=== PATIENT | female | born 2000 | race Caucasian/White ===

== ENCOUNTER → 2020-05-04 06:58 | Outpatient (CLI) | payer BC, SELFPAY ==
[2020-05-04 19:08] LABS: SARS-CoV-2 RNA PCR Negative
== END ==
PROVIDERS: PCP Nurse Practitioner Adult Health; Visit Provider Nurse Practitioner Adult Health
DX: Z20.822 Contact with and (suspected) exposure to COVID-19 (principal); R09.81 Nasal congestion
CPT/HCPCS: C9803; U0003; U0005

== ENCOUNTER 2024-11-12 10:16 | Emergency (ER) | payer OTHER, SELFPAY ==
--- OUTSIDE RECORDS SUMMARY | 2010-03-11 19:00 | XMS_ITS | Continuity of Care Document ---
Author Organization [facility] Address [address] [place] [address] Phone Care Team Providers Care Appeals Nurse Name Role Phone Conversion MD, Doctor Unavailable Unavailabl e Medications Medication Instructions Dosage Effective Dates (start - stop) Status Comments EPIPEN 0.3MG/0.3 ML 1 DIRECTE - Act bello Please fill with the [place] Advance Directives Directive Yes / No Effective Date File Name No Information Encounters Encounter Description Practice Location Reason(s) For Visit Diagnoses Date Provider Providers [facility] [address], [place], [place], [id number], tel:[phone] Conversion Department No Information 1 Conversion Doctor. [address] [place] [address], [address], . [facility], [address], [place], [place], [id number], tel:[phone] [facility] [address]. [address] [place] [address], [id number], . tel:[phone] Family History Family Member Type Diagnosis Age At Onset No Information Payers Payer name Insurance type Covered libertarian ID Authoriza tion(s) No Information Social History Type Description Quantity Date Captured Comments Sex Female Smoking Status No Information Chief Complaint And Reason For Visit No Information Reason For Referral Reason For Referral No Information History Of Present Illness Encounter Date Complaint History Of Prese nt Illness No Information Functional Status Date Functional Assessmen t No Information Instructions Date Instruction Additional Infor mation No Information Assessments Type Assessment Date No Information Patient Care Teams Name Effective Dates (start - stop) Status Members No Information
--- OUTSIDE RECORDS SUMMARY | 2024-10-09 02:40 | XMS_ITS ---
Author Organization [facility] ([address]) Address [address] [place] [address] Care Team Providers Care Superintendent Transmission Name Role Phone Bk Delgado Primary Care Provider Divya Naidu Unavailable [phone] Dimitris Edgar Unavailable [phone] REASON FOR VISIT SCIT - Traditional Schedule Allergy Immunotherapy Social History Sex Assigned At : Social History Observation Description Sex Assigned At Female Encounters Encounter Location Date Provider Diagnosis [facility] [address] [place] [address] 10/09/2024 Dimitris Edgar Allergic rhinitis du e to pollen J30.1 ; Other allergic rhinitis J30.89 ; Allergic rhinitis due to animal (cat) (dog) hair and dander J30.81 and Other chronic allergic conjunctivitis H10.45 Assessments Encounter Date Diagnosis (ICD Code) Assessment Notes Treatment Notes Treatment Clinical Notes Section Notes 10/09/2024 Allergic rhinitis due to pollen (ICD-10 - J30.1) 10/09/2024 Other allergic rhinitis (ICD-10 - J30.89) 10/09/2024 Allergic rhinitis due to animal (cat) (dog) hair and dander (ICD-10 - J30.81) 10/09/2024 Other chronic allergic conjunctivitis (ICD-10 - H10.45) Plan Of Treatment Next Appt Details Follow Up: 1 Week, Reason: Provider Name:Alicia alex 12/02/2024 07:30:00 AM[facility], [address], [place], [address], Progress Notes * Sera GUZMAN MDOB:[birth year] (24 yo F)Acc No.[id number]:10/09/2024 SCIT-Aeroallergen Patient: Sera MAYEN Provider: Danielle Edgar MD :2000 A ge:24 Y S ex:Female Date:10/09/2024 Address:[address] [place], [place] [id number] Pcp:Bk Delgado Subjective: * Chief Complaints: * 1 . SCIT - Traditional Schedule Allergy Immunotherapy. * HPI: * Introduction: The patient is here for scheduled immunotherapy. Please see the attached specialty form regarding the specifics of the administration of these vaccines. As per our protocol, they must undergo a screening health questionnaire (medication changes, reaction(s) to last immunotherapy dose(s), current health status, ACT (if appropriate), self-injectable epinephrine on patient(?) and peak flow (if appropriate)). Also, the patient must wait in our office for 30 minutes after receiving the vaccine(s). Furthermore, every patient must have an epinephrine pen (self-injectable) with them at the time of administration--and carry if for the following 1.5 hours after they leave our office. The patient must also have taken their antihistamine the day of the injection, preferably 2 hours prior. The consent form for SCIT (subcutaneous immunotherapy) is on file. * Medical History: Objective: * Vitals: Assessment: * Assessment: 1. A llergic rhinitis due to pollen - J30.1 (Primary) 2 . O ther allergic rhinitis - J30.89 3 . A llergic rhinitis due to animal (cat) (dog) hair and dander - J30.81 4 . O ther chronic allergic conjunctivitis - H10.45 Plan: * Treatment: * Follow Up: 1 Week * Billing Information: * Visit Code: * Procedure Codes: 90341 IMMUNOTHERAPY INJECTIONS. * Electronic signature of Patisai Edgar MD, FAAAAI on 11/12/2024 at 11:06 AM CDT Sign off status: Pending * Provider: Danielle Edgar MD Date: 0 10/09/2024 Generated for Ryan jurado/Job/Bella on: 0 11/12/2024 11:06 AM CDT History and Physical Notes * HPI (History of Present Illness) Category Sub-Category Detail Notes Category Not es *Introduction The patient is here for scheduled immunotherapy. Please see the attached specialty form regarding the specifics of the administration of these vaccines. As per our protocol, they must undergo a screening health questionnaire (medication changes, reaction(s) to last immunotherapy dose(s), current health status, ACT (if appropriate), self-injectable epinephrine on patient(?) and peak flow (if appropriate)). Also, the patient must wait in our office for 30 minutes after receiving the vaccine(s). Furthermore, every patient must have an epinephrine pen (self-injectable) with them at the time of administration--and carry if for the following 1.5 hours after they leave our office. The patient must also have taken their antihistamine the day of the injection, preferably 2 hours prior. The consent form for SCIT (subcutaneous immunotherapy) is on file.
--- OUTSIDE RECORDS SUMMARY | 2024-11-05 05:00 | XMS_ITS ---
Author Organization [facility] [place] ([address]) Address [address] [place] [address] Care Team Providers Care Psychometric Examiner Name Role Phone Bk Delgado Primary Care Provider Divya Naidu Unavailable [phone] Dimitris Edgar Unavailable [phone] REASON FOR VISIT SCIT - Traditional Schedule Allergy Immunotherapy Social History Sex Assigned At : Social History Observation Description Sex Assigned At Female Encounters Encounter Location Date Provider Diagnosis [facility] [address] [place] [address] 11/05/2024 Dimitris Edgar Allergic rhinitis du e to pollen J30.1 ; Other allergic rhinitis J30.89 ; Allergic rhinitis due to animal (cat) (dog) hair and dander J30.81 and Other chronic allergic conjunctivitis H10.45 Assessments Encounter Date Diagnosis (ICD Code) Assessment Notes Treatment Notes Treatment Clinical Notes Section Notes 11/05/2024 Allergic rhinitis due to pollen (ICD-10 - J30.1) 11/05/2024 Other allergic rhinitis (ICD-10 - J30.89) 11/05/2024 Allergic rhinitis due to animal (cat) (dog) hair and dander (ICD-10 - J30.81) 11/05/2024 Other chronic allergic conjunctivitis (ICD-10 - H10.45) Plan Of Treatment Next Appt Details Follow Up: 1 Week, Reason: Provider Name:Alicia alex 12/02/2024 07:30:00 AM[facility] [address], [place], [address], Progress Notes * Sera GUZMAN MDOB:[birth year] (24 yo F)Acc No.[id number]:11/05/2024 SCIT-Aeroallergen Patient: Sera MAYEN Provider: Danielle Edgar MD :2000 A ge:24 Y S ex:Female Date:11/05/2024 Address:[address] [place], [place] [id number] Pcp:Bk Delgado Subjective: * Chief Complaints: * [...] Information: * Visit Code: * Procedure Codes: 03368 IMMUNOTHERAPY INJECTIONS. * Electronic signature of Patisai Edgar MD, FAAAAI on 11/12/2024 at 11:06 AM CDT Sign off status: Pending * Provider: Danielle Edgar MD Date: 0 11/05/2024 Generated for Ryan jurado/Job/Bella on: 0 11/12/2024 [...]
--- NOTE | ~2024-11-12 | CT_ITS ---
EXAMINATION: CT abdomen pelvis w con DATE: 11/12/2024 15:47 INDICATION: Right upper and lower quadrant pain TECHNIQUE: Computed tomography (CT) of the abdomen and pelvis was performed with 100 cc Omnipaque 350 intravenous contrast. The dose-length product was 182.00 mGy-cm. Automated exposure control and iterative reconstruction technique were employed. COMPARISON: No prior studies for comparison. FINDINGS: Heart size normal. Small hiatal hernia. No significant pleural or pericardial effusion. Fatty infiltration of the liver. The spleen, pancreas, adrenal glands and kidneys are unremarkable. Gallbladder is present. There are thickened proximal small bowel loops with a few loops of small bowel containing air-fluid levels. Findings suspicious for enteritis. Evidence for free air or free fluid. No significant vascular abnormality. No acute osseous abnormality. IMPRESSION: 1. Thickening of proximal small bowel loops with multiple loops of small bowel containing air-fluid levels. Findings suspicious for enteritis. Reviewed, dictated and finalized at location O.
--- NOTE | ~2024-11-12 | US_ITS ---
EXAMINATION: US abdomen limited DATE: 11/12/2024 15:25 INDICATION: Right upper quadrant abdominal pain. TECHNIQUE: Multiple grayscale and Doppler ultrasound images of the abdomen were obtained. COMPARISON: None FINDINGS: The pancreatic head and body are normal in appearance. The pancreatic tail is not visualized. Liver has normal echogenicity and contour, with a smooth surface. No liver lesion identified. No intrahepatic biliary duct dilation suspected. Portal venous flow was seen in the hepatopetal, normal direction and has normal Doppler waveform. Visualized cephalad to mid aorta appears normal in caliber. The visualized proximal inferior vena cava is normal. 3-4 mm echogenic non shadowing likely polyp along the nondependent wall of the neck of the gallbladder. The gallbladder is otherwise normal in appearance. There is no shadowing cholelithiasis. The common bile duct measures 3 mm, which is normal. Sonographic Croft sign was reported as negative by the banquet food server. IMPRESSION: 1. Likely benign 3-4 mm gallbladder polyp at the neck of the gallbladder. Otherwise normal right upper quadrant ultrasound. Reviewed, dictated and finalized at location A. IMPRESSION: 1. Likely benign 3-4 mm gallbladder polyp at the neck of the gallbladder. Other kee normal right upper quadrant ultrasound.
[2024-11-12 10:38] VITALS: BP 138/97; PULSE 100; RESP 18; TEMP 36.6; O2SAT 100
[2024-11-12 10:58] LABS: Hematocrit 42.0 % (37.0-47.0); Hemoglobin 14.3 g/dL (12.0-15.0); Immature Granulocyte Percent A 0.2 % (0-0.5); Lymphocytes Absolute Auto 1.28 K/mm3 (0.9-3.2); Mean Corpuscular HGB Conc 34.0 g/dl (32-36); Mean Corpuscular Hemoglobin 31.0 pg (26-34); Mean Corpuscular Volume 91.1 fl (80-100); Nucleated Red Blood Cells Absolute Auto 0.000 K/mm3 (0.0-0.012); Nucleated Red Blood Cells Perc 0.0 % (0.0-0.2); Platelet Count Result 252 k/mm3 (150-375); Red Blood Count 4.61 M/mm3 (4.2-5.4); White Blood Count 4.2 K/mm3 (4.5-10.0)
[2024-11-12 11:01] LABS: Add Urine Microscopic? YES; Appearance Urine Clear (Clear); Glucose Urine UA Negative (Negative); Leukocyte Esterase Ur Trace LEU/UL (Negative); Nitrate Urine Negative (Negative); Non Pathogenic Casts 0-2; Specific Grav Ur 1.016 (1.001-1.035)
[2024-11-12 11:03] LABS: BEDSIDEPREGUCG Negative (Negative)
--- OUTSIDE RECORDS SUMMARY | 2024-11-12 11:06 | XMS_ITS | Patient Health Record ---
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 Name Role Phone Bk Delgado Primary Care Provider UnavailDivya Dang Unavailable [phone] Dimitris Edgar Unavailable [phone] Alicia White Unavailable [phone] Allergies No Known Allergies Reason For Referral No Information Medications Medication SIG (Take, Route, Frequency, Duration) Notes Start Date End Date Status FAMOTIDINE 40 mg 1 tab(s) orally 30 minutes before shots Active Triamcinolone Acetonide 0.1 % 1 laureano applied topically weekly as needed; Duration: 30 day(s) 08/18/2021 Active XYZAL 5 mg 1 tablet PO daily; Duration: 30 Active Singulair 10 MG 1 tab(s) orally once a day; Duration: 90 day(s) Active FLONASE 50 mcg/inh 2 spray(s) in each nostril once a day; Duration: 30 day(s) Active Isibloom 0.15 MG-0.03 MG TAKE 1 TABLET BY MOUTH EVERY DAY; Duration: 84 *Please review and pick correct strength-formula tion from Medispan options. If intended option is not shown, discontinue and re-order from Quick Search* Active SIT (TRADITIONAL) variable per schedule per schedule Active ZyrTEC Allergy 10 MG 1 tab(s) orally Qday Active Flonase Allergy Relief 50 MCG/ACT 2 spray(s) in each nostril once a day; Duration: 30 day(s) Active NASAL WASHES N/A as directed intranasally as needed; Duration: 30 Active Famotidine 40 MG 1 tab(s) orally 30 minutes before shots Active AEROCHAMBER MDI SPACER - MOUTHPIECE (ADULT) N/A as directed PO Per asthma action plan; Duration: 30 day(s) Active Auvi-Q 0.3 MG/0.3ML 0.3 mg intramuscularly once; Duration: 30 day(s) Active VENTOLIN HFA 90 mcg/inh 2 puff(s) inhaled Q4-6 hours, PRN and per the asthma action plan; Duration: 30 days Active Omeprazole 20 MG 1 capsule 30 minutes before morning meal Orally Once a day Active Pataday 0.7 % 1 drop into affected eye Ophthalmic Once a day; Duration: 30 days 05/12/2024 Active Ventolin HFA 108 (90 Base) MCG/ACT 2 puff(s) inhaled Q4-6 hours, PRN and per the asthma action plan; Duration: 30 days Active Auvi-Q 0.3 MG/0.3ML as directed Injection as directed; Duration: 30 days 05/12/2024 Active Montelukast Sodium 10 MG 1 tablet Orally Once a day; Duration: 90 days Active AUVI -Q 0.3 mg 0.3 mg intramuscularly once; Duration: 30 day(s) Not-Taking Azelastine HCl 137 MCG/SPRAY 2 sprays in each nostril Nasally Twice a day; Duration: 30 days Active Triamcinolone Acetonide 0.1 % 1 laureano applied topically weekly as needed; Duration: 30 day(s) 08/18/2021 Not-Taking Immunizations Vaccine Route Administration Date Status Comme nts Covid 19 (Pfizer) Unknown 05/03/2020 Administered Covid 19 (Pfizer) Unknown 05/06/2020 Administered Covid 19 (Pfizer) Unknown 05/29/2020 Administered Covid 19 (Pfizer) Unknown 06/02/2020 Administered Social History Tobacco Use: Social History Observation Description Date Details (start date - stop date) Never Smoker NA - NA Sex Assigned At : Social History Observation Description Sex Assigned At Female Smoking Smart Form: Question Answer Notes Are you a: never smoker Problems Problem Type SNOMED Code ICD Code Onset Dates Problem Status W/U Status Risk Notes Problem Chronic allergic conjunctivitis (46458895) Other chronic allergic conjunctivitis (H10.45) Active confirmed Problem Allergic rhinitis caused by pollen (disorder) (55670682) Allergic rhinitis due to pollen (J30.1) Active confirmed Problem Allergic rhinitis (81159506) Other allergic rhinitis (J30.89) Active confirmed Problem Anaphylaxis caused by tree nut (700478604) Anaphylactic reaction due to tree nuts and seeds, subsequent encounter (T78.05XD) Active confirmed Problem Angioneurotic edema (03140216) Angioneurotic edema, subsequent encounter (T78.3XXD) Active confirmed Problem Food allergy (522355433) Allergy to other foods (Z91.018) Active confirmed Problem Allergic rhinitis caused by animal hair and dander (883042514105113) Allergic rhinitis due to animal (cat) (dog) hair and dander (J30.81) Active confirmed Problem Ingestion dermatitis caused by food (771171396) Dermatitis due to ingested food (L27.2) Active confirmed Problem Shortness of breath (189312093) Shortness of breath (R06.02) Active confirmed Vital Signs Oximetry 100 % 05/12/2024 Blood pressure diastolic 79 mm Hg 05/12/2024 Blood pressure systolic 116 mm Hg 05/12/2024 Weight 121.6 lbs 05/12/2024 Encounters Encounter Location Date Provider Diagnosis [facility] [address] [facility] [address] [phone] 10/29/2024 Dimitris Edgar Allergic rhinitis du e to pollen J30.1 ; Other allergic rhinitis J30.89 ; Allergic rhinitis due to animal (cat) (dog) hair and dander J30.81 and Other chronic allergic conjunctivitis H10.45 [facility] [address] [facility] [address] [phone] 10/22/2024 Dimitris Edgar Allergic rhinitis du e to pollen J30.1 ; Other allergic rhinitis J30.89 ; Allergic rhinitis due to animal (cat) (dog) hair and dander J30.81 and Other chronic allergic conjunctivitis H10.45 [facility] [address] [place] [address] [facility] [address] [address] 09/25/2024 Dimitris Edgar Allergic rhinitis du e to pollen J30.1 ; Other allergic rhinitis J30.89 ; Allergic rhinitis due to animal (cat) (dog) hair and dander J30.81 and Other chronic allergic conjunctivitis H10.45 [facility] [address] [place] [phone] 09/23/2024 Dimitris Herve Allergic rhinitis du e to pollen J30.1 ; Other allergic rhinitis J30.89 ; Allergic rhinitis due to animal (cat) (dog) hair and dander J30.81 and Other chronic allergic conjunctivitis H10.45 [facility] [address] [place] [phone] 09/17/2024 Dimitrisrajani Edgar Allergic rhinitis du e to pollen J30.1 ; Other allergic rhinitis J30.89 ; Allergic rhinitis due to animal (cat) (dog) hair and dander J30.81 and Other chronic allergic conjunctivitis H10.45 [facility] [address] [place] [phone] 09/10/2024 Dimitris Edgar Allergic rhinitis du e to pollen J30.1 ; Other allergic rhinitis J30.89 ; Allergic rhinitis due to animal (cat) (dog) hair and dander J30.81 and Other chronic allergic conjunctivitis H10.45 [facility] [address] [place] [phone] 09/03/2024 Dimitris dEgar Allergic rhinitis du e to pollen J30.1 ; Other allergic rhinitis J30.89 ; Allergic rhinitis due to animal (cat) (dog) hair and dander J30.81 and Other chronic allergic conjunctivitis H10.45 [facility] [address] [place] [phone] 08/27/2024 Dimitris Edgar Allergic rhinitis du e to pollen J30.1 ; Other allergic rhinitis J30.89 ; Allergic rhinitis due to animal (cat) (dog) hair and dander J30.81 and Other chronic allergic conjunctivitis H10.45 [facility] [address] [place] [address] [facility] [address] [phone] 08/13/2024 Dimitris Edgar Allergic rhinitis du e to pollen J30.1 ; Other allergic rhinitis J30.89 ; Allergic rhinitis due to animal (cat) (dog) hair and dander J30.81 and Other chronic allergic conjunctivitis H10.45 [facility] [address] [place] [address] [facility] [address] [phone] 08/06/2024 Dimitris Edgar Allergic rhinitis du e to pollen J30.1 ; Other allergic rhinitis J30.89 ; Allergic rhinitis due to animal (cat) (dog) hair and dander J30.81 and Other chronic allergic conjunctivitis H10.45 [facility] [address] [place] [phone] 07/30/2024 Dimitris Edgar Allergic rhinitis du e to pollen J30.1 ; Other allergic rhinitis J30.89 ; Allergic rhinitis due to animal (cat) (dog) hair and dander J30.81 and Other chronic allergic conjunctivitis H10.45 [facility] [address] [place] [phone] 07/23/2024 Dimitris Edgar Allergic rhinitis du e to pollen J30.1 ; Other allergic rhinitis J30.89 ; Allergic rhinitis due to animal (cat) (dog) hair and dander J30.81 and Other chronic allergic conjunctivitis H10.45 [facility] [address] [place] [address] [facility] [address] [phone] 07/17/2024 Dimitris Edgar Allergic rhinitis du e to pollen J30.1 ; Other allergic rhinitis J30.89 ; Allergic rhinitis due to animal (cat) (dog) hair and dander J30.81 and Other chronic allergic conjunctivitis H10.45 [facility] [address] [place] [phone] 06/25/2024 Dimitris Edgar Allergic rhinitis du e to pollen J30.1 ; Other allergic rhinitis J30.89 ; Allergic rhinitis due to animal (cat) (dog) hair and dander J30.81 and Other chronic allergic conjunctivitis H10.45 [facility] [address] [place] [address] [facility] [address] [phone] 06/18/2024 Dimitris Edgar Allergic rhinitis du e to pollen J30.1 ; Other allergic rhinitis J30.89 ; Allergic rhinitis due to animal (cat) (dog) hair and dander J30.81 and Other chronic allergic conjunctivitis H10.[address] [facility] [address] [phone] 06/11/2024 Dimitris Edgar Allergic rhinitis du e to pollen J30.1 ; Other allergic rhinitis J30.89 ; Allergic rhinitis due to animal (cat) (dog) hair and dander J30.81 and Other chronic allergic conjunctivitis H10.[address] [address] 12/26/2023 Dimitris Edgar Allergic rhinitis du e to pollen J30.1 ; Other allergic rhinitis J30.89 ; Allergic rhinitis due to animal (cat) (dog) hair and dander J30.81 and Other chronic allergic conjunctivitis H10.[address] [address] 11/28/2023 Dimitris Edgar Allergic rhinitis du e to pollen J30.1 ; Other allergic rhinitis J30.89 ; Allergic rhinitis due to animal (cat) (dog) hair and dander J30.81 and Other chronic allergic conjunctivitis H10.[address] [phone] 05/12/2024 Alicia White Allergic rhinitis du e to pollen J30.1 ; Allergic rhinitis due to animal (cat) (dog) hair and dander J30.81 ; Other chronic allergic conjunctivitis H10.45 ; Other allergic rhinitis J30.89 ; Shortness of breath R06.02 ; Allergy to other foods Z91.018 ; Anaphylactic reaction due to tree nuts and seeds, subsequent encounter T78.05XD ; Angioneurotic edema, subsequent encounter T78.3XXD and Dermatitis due to ingested food L27.2 [facility] [address] [place] [address] 05/29/2024 Divya Smith Assessments Encounter Date Diagnosis (ICD Code) Assessment Notes Treatment Notes Treatment Clinical Notes Section Notes 11/28/2023 Allergic rhinitis due to pollen (ICD-10 - J30.1) 12/26/2023 Allergic rhinitis due to pollen (ICD-10 - J30.1) 05/12/2024 Allergic rhinitis due to pollen (ICD-10 - J30.1) Sera clearly suffers from atopic disease based upon our past skin testing. - Sera returns today behind on SCIT dosing, last dose given December 2023. Vials are currently . Remake forms signed. Will discuss build-up schedule with STANISLAW Smith. - Previously reduced and held MM to 1:1 0.2 mL due to large locals with clear improvement in LLR. Consider increasing if dosing is tolerated. - Dosing not given today. - Continue triple pre-medication prior to SCIT. Sera carries AIE at all times. - Follow-up as scheduled for SCIT dosing and in 4-6 months for further evaluation and management 05/12/2024 Allergic rhinitis due to animal (cat) (dog) hair and dander (ICD-10 - J30.81) Follow allergen avoidance, meds and restart SCIT as an adjunctive treatment to current regimen. 06/18/2024 Allergic rhinitis due to pollen (ICD-10 - J30.1) 06/25/2024 Allergic rhinitis due to pollen (ICD-10 - J30.1) 07/17/2024 Allergic rhinitis due to pollen (ICD-10 - J30.1) 07/23/2024 Allergic rhinitis due to pollen (ICD-10 - J30.1) 07/30/2024 Allergic rhinitis due to pollen (ICD-10 - J30.1) 08/06/2024 Allergic rhinitis due to pollen (ICD-10 - J30.1) 08/13/2024 Allergic rhinitis due to pollen (ICD-10 - J30.1) 08/27/2024 Allergic rhinitis due to pollen (ICD-10 - J30.1) 09/03/2024 Allergic rhinitis due to pollen (ICD-10 - J30.1) 09/10/2024 Allergic rhinitis due to pollen (ICD-10 - J30.1) 09/17/2024 Allergic rhinitis due to pollen (ICD-10 - J30.1) 09/23/2024 Allergic rhinitis due to pollen (ICD-10 - J30.1) 09/25/2024 Allergic rhinitis due to pollen (ICD-10 - J30.1) 10/22/2024 Allergic rhinitis due to pollen (ICD-10 - J30.1) 10/29/2024 Allergic rhinitis due to pollen (ICD-10 - J30.1) 06/11/2024 Allergic rhinitis due to pollen (ICD-10 - J30.1) 06/11/2024 Other allergic rhinitis (ICD-10 - J30.89) 10/29/2024 Other allergic rhinitis (ICD-10 - J30.89) 10/22/2024 Other allergic rhinitis (ICD-10 - J30.89) 09/25/2024 Other allergic rhinitis (ICD-10 - J30.89) 09/23/2024 Other allergic rhinitis (ICD-10 - J30.89) 09/17/2024 Other allergic rhinitis (ICD-10 - J30.89) 09/10/2024 Other allergic rhinitis (ICD-10 - J30.89) 09/03/2024 Other allergic rhinitis (ICD-10 - J30.89) 08/27/2024 Other allergic rhinitis (ICD-10 - J30.89) 08/13/2024 Other allergic rhinitis (ICD-10 - J30.89) 08/06/2024 Other allergic rhinitis (ICD-10 - J30.89) 07/30/2024 Other allergic rhinitis (ICD-10 - J30.89) 07/23/2024 Other allergic rhinitis (ICD-10 - J30.89) 07/17/2024 Other allergic rhinitis (ICD-10 - J30.89) 06/25/2024 Other allergic rhinitis (ICD-10 - J30.89) 06/18/2024 Other allergic rhinitis (ICD-10 - J30.89) 05/12/2024 Other chronic allergic conjunctivitis (ICD-10 - H10.45) Given ocular signs and symptoms I encouraged allergy avoidance measures and meds as above. If symptoms persist, consider adding additional medications including intraocular antihistamine/mas t cell stabilizer, PRN and restart SCIT as an adjunctive measure. 12/26/2023 Other allergic rhinitis (ICD-10 - J30.89) 11/28/2023 Other allergic rhinitis (ICD-10 - J30.89) 11/28/2023 Allergic rhinitis due to animal (cat) (dog) hair and dander (ICD-10 - J30.81) 12/26/2023 Allergic rhinitis due to animal (cat) (dog) hair and dander (ICD-10 - J30.81) 05/12/2024 Other allergic rhinitis (ICD-10 - J30.89) Follow allergen avoidance, meds and restart SCIT as an adjunctive treatment to current regimen. 06/18/2024 Allergic rhinitis due to animal (cat) (dog) hair and dander (ICD-10 - J30.81) 06/25/2024 Allergic rhinitis due to animal (cat) (dog) hair and dander (ICD-10 - J30.81) 07/17/2024 Allergic rhinitis due to animal (cat) (dog) hair and dander (ICD-10 - J30.81) 07/23/2024 Allergic rhinitis due to animal (cat) (dog) hair and dander (ICD-10 - J30.81) 07/30/2024 Allergic rhinitis due to animal (cat) (dog) hair and dander (ICD-10 - J30.81) 08/06/2024 Allergic rhinitis due to animal (cat) (dog) hair and dander (ICD-10 - J30.81) 08/13/2024 Allergic rhinitis due to animal (cat) (dog) hair and dander (ICD-10 - J30.81) 08/27/2024 Allergic rhinitis due to animal (cat) (dog) hair and dander (ICD-10 - J30.81) 09/03/2024 Allergic rhinitis due to animal (cat) (dog) hair and dander (ICD-10 - J30.81) 09/10/2024 Allergic rhinitis due to animal (cat) (dog) hair and dander (ICD-10 - J30.81) 09/17/2024 Allergic rhinitis due to animal (cat) (dog) hair and dander (ICD-10 - J30.81) 09/23/2024 Allergic rhinitis due to animal (cat) (dog) hair and dander (ICD-10 - J30.81) 09/25/2024 Allergic rhinitis due to animal (cat) (dog) hair and dander (ICD-10 - J30.81) 10/22/2024 Allergic rhinitis due to animal (cat) (dog) hair and dander (ICD-10 - J30.81) 10/29/2024 Allergic rhinitis due to animal (cat) (dog) hair and dander (ICD-10 - J30.81) 06/11/2024 Allergic rhinitis due to animal (cat) (dog) hair and dander (ICD-10 - J30.81) 06/11/2024 Other chronic allergic conjunctivitis (ICD-10 - H10.45) 10/29/2024 Other chronic allergic conjunctivitis (ICD-10 - H10.45) 10/22/2024 Other chronic allergic conjunctivitis (ICD-10 - H10.45) 09/25/2024 Other chronic allergic conjunctivitis (ICD-10 - H10.45) 09/23/2024 Other chronic allergic conjunctivitis (ICD-10 - H10.45) 09/17/2024 Other chronic allergic conjunctivitis (ICD-10 - H10.45) 09/10/2024 Other chronic allergic conjunctivitis (ICD-10 - H10.45) 09/03/2024 Other chronic allergic conjunctivitis (ICD-10 - H10.45) 08/27/2024 Other chronic allergic conjunctivitis (ICD-10 - H10.45) 08/13/2024 Other chronic allergic conjunctivitis (ICD-10 - H10.45) 08/06/2024 Other chronic allergic conjunctivitis (ICD-10 - H10.45) 07/30/2024 Other chronic allergic conjunctivitis (ICD-10 - H10.45) 07/23/2024 Other chronic allergic conjunctivitis (ICD-10 - H10.45) 07/17/2024 Other chronic allergic conjunctivitis (ICD-10 - H10.45) 06/25/2024 Other chronic allergic conjunctivitis (ICD-10 - H10.45) 05/12/2024 Shortness of breath (ICD-10 - R06.02) History of SOB and wheezing, noted more with inspiration and exercise. - Prior spirometry showed mildly reduced FEV1 and FEV1% with normal FVC. 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 Post PB challenge showed improvement in flow rates in smaller airways, but no improvement in FEV1, FVC, and FEV1%. - Restart SCIT as above given atopy is a trigger. - Continue NINI PRN. ACT stable - again denies any recent symptoms other than with exercise. - Consider evaluation at [facility] if symptoms recur 06/18/2024 Other chronic allergic conjunctivitis (ICD-10 - H10.45) 12/26/2023 Other chronic allergic conjunctivitis (ICD-10 - H10.45) 11/28/2023 Other chronic allergic conjunctivitis (ICD-10 - H10.45) 05/12/2024 Allergy to other foods (ICD-10 - Z91.018) As below, persistent tree nut allergy to pecan, walnut, hazelnut, cashew, pistachio and macadamia. - Last immunocaps in 2019 with persistent allergen, not interested in updated testing at this time. - Interval exposure 04/[address] [facility] after consuming frozen alcoholic drink with Pecan Orgeat, resulting in throat and facial swelling and wheezing, seen in [place] [facility] and treated with steriods and epinephrine. Prior to this last exposure was in 2019, with noted lip swelling with almond and pecan and cashew exposure. - Continue strict avoidance and keep AIE on hand at all times, AIE refill sent. - Last visit discussed strict label reading as she is not interested in OIT at this time given her busy personal schedule. - Sera would be a good candidate for OIT, once allergies are managed and her time allows, given her past accidental exposures 05/12/2024 Anaphylactic reaction due to tree nuts and seeds, subsequent encounter (ICD-10 - T78.05XD) Historical throat and mouth itching w/o swelling or hives with consumption of tree nuts. + SPT at age 7. Repeat SPT in 2016 + to all tree nuts tested. Updated ImmunoCaps in 2019 with + to hazelnut, pistachio, pecan, macadamia, walnut, [place] nut, and cashew. - Exposure to pecan syrup resulting in throat and facial swelling with wheezing - treated with steriods and epinephrine. - Continue AIE and avoidance 05/12/2024 Angioneurotic edema, subsequent encounter (ICD-10 - T78.3XXD) Hx of 6-7 episodes of lip swelling, without hives, rash, GI, or respiratory symptoms in peak spring of 2015. 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 - continues allergy meds and SCIT as adjunctive therapy. - no known issues with latex 05/12/2024 Other Plan Of Treatment Pending Test Test Name Order Date -Respiratory Allergens w/Total IgE Area 8 09/13/2020 Next Appt Details Provider Name:Alicia alex, 12/02/2024 07:30:00 AM[facility] [address], [place], [address], Insurance Providers Payer Name Payer Address Payer Phone Subscriber Number Group Number Insured Name Patient Relationship to Insured Coverage Start Date Coverage End Date [employer] [address] [address] [place] [address] [id number] Gavi Yanez Child - Insured has Financial Responsibility 3 Medical (General) History Medical History History ICD Code Allergic rhinitis due to pollen J30.1 Allergic rhinitis due to animal (cat) (d og) hair and dander J30.81 Other allergic rhinitis J30.89 Anaphylactic reaction due to tree nuts a nd seeds, initial encounter T78.05XA Anaphylactic reaction due to tree nuts a nd seeds, subsequent encounter T78.05XD Allergy to other foods Z91.018 Surgical History Surgery Date(Month/Year)
[2024-11-12 11:11] LABS: Alanine Aminotransferase 17 U/L (6-35); Albumin Level 4.9 g/dL (3.5-5.1); Alkaline Phosphatase 41 U/L (38-126); Anion Gap 10 mmol/L (4-12); Aspartate Amino Transferase 26 U/L (14-36); Bilirubin,Total 0.4 mg/dL (0.2-1.3); Blood Urea Nitrogen 10 mg/dL (7-17); Calcium 9.8 mg/dL (8.4-10.2); Carbon Dioxide 21 mmol/L (22-30); Chloride 107 mmol/L (98-107); Estimated CRCL calculation 79 ml/min; Estimated Glomerular Filt Rate > 60; Glucose 91 mg/dL (65-110); Lipase 85 U/L (23-300); Potassium 3.8 mmol/L (3.4-5.0); Sodium 138 mmol/L (137-145); Total Protein 8.8 g/dL (6.3-8.2)
[2024-11-12 11:46] VITALS: BP 124/86; PULSE 76; RESP 16; O2SAT 100
[2024-11-12 14:01] VITALS: BP 101/67; PULSE 90; RESP 18; O2SAT 100
--- NOTE | 2024-11-12 14:31 | ED.GENADULT ---
HPI - General Adult General Chief complaint: Abdominal Pain Stated complaint: R ABD PAIN TODAY Time Seen by Provider: 11/12/24 13:09 History of Present Illness HPI narrative: 24-year-old female presents to the emergency department for evaluation for upper quadrant pain that started last night worsened today. Patient did have associated nausea without vomiting. Patient did have fish tacos last night states that sometimes fried food does bother her. Patient has no prior history of gallbladder disease. patient was ill-appearing at time of arrival. Patient declined any medications for pain control. patient denies any significant past medical history Related Data Home Medications ?Medication ?Instructions ?Recorded ?Confirmed ?Last Taken ?Type omeprazole 20 mg capsule,delayed 20 mg PO DAILY 10/02/23 10/08/24 Unknown History release Shanda-Q Auto injector .Route 01/29/24 01/29/24 Unknown History albuterol sulfate 90 mcg/actuation 1 puff inhalation Q4H PRN 01/29/24 10/08/24 Unknown History aerosol inhaler (Ventolin HFA) cetirizine 10 mg tablet (All Day 10 mg PO DAILY PRN 01/29/24 10/08/24 Unknown History Allergy (cetirizine)) famotidine 20 mg tablet 20 mg PO .COMPLEX 01/29/24 10/08/24 Unknown History montelukast 10 mg tablet 10 mg PO .COMPLEX 01/29/24 10/08/24 Unknown History triamcinolone acetonide 0.1 % 1 applic topical .COMPLEX 01/29/24 01/29/24 Unknown History topical cream Allergies Allergy/AdvReac Type Severity Reaction Status Date / Time tree nut Allergy Unknown Dyspnea / Verified 11/12/24 10:17 SOB Seasonal allergies Allergy Unknown Unknown Uncoded 10/08/24 09:58 Review of Systems Review of Systems: All systems reviewed & are unremarkable except as noted in HPI and below PMFSH Past Medical History Medical History Headache Allergies Chronic GERD Migraines Surgical History Surgical History H/O eye surgery (~03/05/02) Family History Family History Father Asthma Hypertension Grandparent Ovarian cancer Grandparent Cancer Social History Social History (Updated 10/08/24 @ 10:00 by Allyn Antony [facility]) Smoking status: Never smoker Alcohol intake: current Alcohol use details: socially Beer Wine Cocktail Average 6 drinks a week Substance use: never Substance use type: does not use Do You Feel Safe in your Home?: Yes Lack of Transportation: No Lack of Food: Never True Current Housing: I Have Housing Concerned About Future Housing: No Difficulty Paying Gas/Electric Bills: No Difficulty Paying for Meds: No Currently Unemployed: No Education: High School Diploma/GED Difficulty w/ Childcare or Family Care: No Living arrangements: with family Additional living arrangements comments: Occupation/Education: occupation Additional occupation/education comments: student Gender identity (if verbalized by the patient): Female Sexual Orientation (if Verbalized by the Patient): Straight or Heterosexual Exam Narrative: APPEARANCE: ill-appearing HEAD: normocephalic, atraumatic. EYES: PERRLA/EOMI, conjunctivae clear. NOSE: Normal no drainage EARS:TMS clear with good light reflex. THROAT: Pharynx clear, no exudate. NECK: Supple. No adenopathy, no masses. RESPIRATORY: Airway patent, respirations nonlabored. Clear to auscultation bilaterally, no rales, rhonchi, wheezing. CARDIOVASCULAR: Regular rate and rhythm without murmurs rubs or gallops. ABDOMINAL: Right upper quadrant tenderness to palpation MUSCULOSKELETAL: Moves all extremities. Strength/ROM intact, No edema, No calf tenderness. NEURO: Alert. Cranial nerves II through XII intact. Good gait. Good coordination SKIN: Warm, dry. Normal Color Course Vital Signs Vital signs: Vital Signs Temperature 97.9 F 11/12/24 10:38 Pulse Rate 100 11/12/24 10:38 Respiratory Rate 18 11/12/24 10:38 Blood Pressure 138/97 H 11/12/24 10:38 Pulse Oximetry 100 11/12/24 10:38 Oxygen Delivery Room Air 11/12/24 10:38 Temperature 97.9 F 11/12/24 10:38 Pulse Rate 70 11/12/24 17:45 Respiratory Rate 18 11/12/24 17:45 Blood Pressure 111/66 11/12/24 17:45 Pulse Oximetry 99 11/12/24 17:45 Oxygen Delivery Room Air 11/12/24 10:38 Medical Decision Making MDM Narrative Medical decision making narrative: 24-year-old female presents department for evaluation for right-sided abdominal pain. Patient is afebrile with no assistance hemoglobin 14.3 patient has no acute abnormalities on her CMP with normal T bili, AST, ALT, alk-phos and lipase. UA was negative for infection. Ultrasound was ordered to evaluate for cholecystitis. This was negative. Since the patient was still having significant discomfort CT was ordered and this was ruled out appendicitis call as an diverticulitis and was evident of enteritis. Patient was treated with a L of lactated Ringer's, IV Protonix, IV Reglan IV Benadryl and a GI cocktail. On re-evaluation patient reports he does feel improved. Patient was advised to follow a clear liquid diet for the next 1-3 days. Patient was provided Zofran for nausea control. All questions concerns were addressed. Patient family are comfortable plan for discharge and close follow-up. Differential Diagnosis Differential Diagnosis: Cholecystitis, cholelithiasis, colitis, diverticulitis, appendicitis, UTI Vital Signs Vital Signs: Vital Signs Temperature 97.9 F 11/12/24 10:38 Pulse Rate 100 11/12/24 10:38 Respiratory Rate 18 11/12/24 10:38 Blood Pressure 138/97 H 11/12/24 10:38 Pulse Oximetry 100 11/12/24 10:38 Oxygen Delivery Room Air 11/12/24 10:38 Temperature 97.9 F 11/12/24 10:38 Pulse Rate 70 11/12/24 17:45 Respiratory Rate 18 11/12/24 17:45 Blood Pressure 111/66 11/12/24 17:45 Pulse Oximetry 99 11/12/24 17:45 Oxygen Delivery Room Air 11/12/24 10:38 Lab Data Lab results reviewed: Yes I reviewed the patient's lab results. 11/12/24 10:46 11/12/24 10:46 Labs: Lab Results 11/12/24 11/12/24 Range/Units 10:46 11:01 WBC 4.2 L (4.5-10.0) K/mm3 RBC 4.61 (4.2-5.4) M/mm3 Hgb 14.3 (12.0-15.0) g/dL Hct 42.0 (37.0-47.0) % MCV 91.1 (80-100) fl MCH 31.0 (26-34) pg MCHC 34.0 (32-36) g/dl RDW 12.2 (11.5-14.5) % Plt Count 252 (150-375) k/mm3 MPV 8.8 (7.4-10.4) fl Immature Gran % (Auto) 0.2 (0-0.5) % Neut % (Auto) 54.7 (45.5-73.1) % Lymph % (Auto) 30.4 (18.3-44.2) % Porter % (Auto) 10.9 H (2.6-8.5) % Eos % (Auto) 3.3 (0-4.4) % Baso % (Auto) 0.5 (0.2-1.2) % Lymph # (Auto) 1.28 (0.9-3.2) K/mm3 Porter # (Auto) 0.5 (0.1-0.6) K/mm3 Eos # (Auto) 0.1 (0-0.3) K/mm3 Baso # (Auto) 0.0 (0.0-0.1) K/mm3 Abs Immat Gran (auto) 0.01 (0.00-0.031) K/mm3 Absolute Neuts (auto) 2.3 (1.3-6.7) K/mm3 Absolute Nucleated RBC 0.000 (0.0-0.012) K/mm3 Nucleated RBC % 0.0 (0.0-0.2) % Sodium 138 (137-145) mmol/L Potassium 3.8 (3.4-5.0) mmol/L Chloride 107 (98-107) mmol/L Carbon Dioxide 21 L (22-30) mmol/L Anion Gap 10 (4-12) mmol/L BUN 10 (7-17) mg/dL Creatinine 0.78 (0.7-1.0) mg/dL Estim Creat Clear Calc 79 ml/min Estimated GFR > 60 (59 - ) Glucose 91 (65-110) mg/dL Calcium 9.8 (8.4-10.2) mg/dL Total Bilirubin 0.4 (0.2-1.3) mg/dL AST 26 (14-36) U/L ALT 17 (6-35) U/L Alkaline Phosphatase 41 (38-126) U/L Total Protein 8.8 H (6.3-8.2) g/dL Albumin 4.9 (3.5-5.1) g/dL Lipase 85 (23-300) U/L Urine Color Yellow (Yellow) Urine Appearance Clear (Clear) Urine pH 7.0 (5.0-9.0) Ur Specific Douglass 1.016 (1.001-1.035) Urine Protein Negative (Negative) mg/dL Urine Glucose (UA) Negative (Negative) mg/dL Urine Ketones Negative (Negative) mg/dL Ur Blood (Man) Negative (Negative) Urine Nitrate Negative (Negative) Urine Bilirubin Negative (Negative) Urine Urobilinogen 0.2 (<2.0) mg/dL Leukocyte Esterase Rfl Trace H (Negative) JAZZMINE/UL Urine RBC 0-2 (0-2) /hpf Urine WBC 0-5 (0-3) /hpf Ur Squamous Epith Cells Few (Few) /hpf Urine Bacteria None seen /hpf Urine Casts 0-2 POC Urine HCG, Qual Negative (Negative) Imaging Data Radiologist's impression: Impressions Abdomen Ultrasound 11/12/24 15:26 IMPRESSION: 1. Likely benign 3-4 mm gallbladder polyp at the neck of the gallbladder. Otherwise normal right upper quadrant ultrasound. Abdomen/Pelvis CT 11/12/24 15:53 IMPRESSION: 1. Thickening of proximal small bowel loops with multiple loops of small bowel containing air-fluid levels. Findings suspicious for enteritis. Discharge Plan Discharge Clinical Impression: Nausea & vomiting, Gallbladder polyp Patient Disposition: Home Condition: Stable Instructions: Antibiotic Form, Clear Liquid Diet (ED), Abdominal Pain (ED), Enteritis (ED) Additional Instructions: Zofran as needed for nausea control. Omeprazole as directed. Clear liquid diet for the next 1-3 days. Advance to a bland diet as tolerated. avoid NSAIDs and avoid alcohol. Have close follow-up with your primary care physician. Patient Language: Kazakh Prescriptions: New ondansetron 4 mg tablet,disintegrating 4 mg PO Q8H PRN (Reason: nausea and vomiting) Qty: 14 0RF No Action cetirizine [All Day Allergy (cetirizine)] 10 mg tablet 10 mg PO DAILY PRN Shanda-Q Auto injector .Route Rx Instructions: 0.3mg PRN anaphylaxis albuterol sulfate [Ventolin HFA] 90 mcg/actuation HFA aerosol inhaler 1 puff inhalation Q4H PRN famotidine 20 mg tablet 20 mg PO .COMPLEX Rx Instructions: 20 mg orally prior to allergy injection; montelukast 10 mg tablet 10 mg PO .COMPLEX Rx Instructions: 10 mg orally prior to allergy injection; triamcinolone acetonide 0.1 % cream 1 applic topical .COMPLEX Rx Instructions: 1 applic topically prn w/ allergy injection; desogestrel-ethinyl estradiol [Isibloom] 0.15-0.03 mg tablet 1 tablet PO Q24H Qty: 112 4RF Rx Instructions: take in a continuous manner skipping the placebo pills to skip cycles omeprazole 20 mg capsule,delayed release(DR/EC) 20 mg PO DAILY Follow-up/Referrals: Myriam Rodas APRN [Primary Care Provider, Family Practice] Stand Alone Forms: Work/School Release IP
[2024-11-12] MEDS: PANTOPRAZOLE SODIUM IV 40 MG VIAL IV PUSH (16:26)
[2024-11-12] MEDS: BELLADONNA ALK/PHENOB ELIX 10 ML, MAG HYDROX/ALUMINUM HYD/SIMETH 30 ML, LIDOCAINE 2% VI... PO (16:27)
[2024-11-12] MEDS: LACTATED RINGERS 1,000 ML 999 ML IV CONT (16:27)
[2024-11-12] MEDS: METOCLOPRAMIDE HCL INJ 10 MG/2 ML VIAL IV PUSH (16:30)
[2024-11-12 16:41] VITALS: BP 101/60; PULSE 65; RESP 14; O2SAT 100
[2024-11-12 17:45] VITALS: BP 111/66; PULSE 70; RESP 18; O2SAT 99
== END 2024-11-12 17:48 | disposition home or self-care (01) ==
PROVIDERS: Emergency Provider Emergency Medicine; PCP Nurse Practitioner Adult Health
DX: K82.4 Cholesterolosis of gallbladder (principal); R11.2 Nausea with vomiting, unspecified; K21.9 Gastro-esophageal reflux disease without esophagitis; Z79.3 Long term (current) use of hormonal contraceptives
CPT/HCPCS: 36415; 74177; 76705; 80053; 81001; 81025; 83690; 85025; 96361; 96374; 96375; 99284; A9270; J1200; J2470; J2765; J7120; Q9967

== ENCOUNTER 2025-02-04 08:03 | Outpatient (CLI) | payer OTHER, SELFPAY ==
[2025-02-04 18:52] LABS: Hematocrit 40.9 % (37.0-47.0); Hemoglobin 13.2 g/dL (12.0-15.0); Mean Corpuscular HGB Conc 32.3 g/dl (32-36); Mean Corpuscular Hemoglobin 31.4 pg (26-34); Mean Corpuscular Volume 97.1 fl (80-100); Platelet Count Result 286 k/mm3 (150-375); Red Blood Count 4.21 M/mm3 (4.2-5.4); White Blood Count 4.1 K/mm3 (4.5-10.0)
[2025-02-04 18:54] LABS: Iron 172 ug/dL (37-170)
[2025-02-04 19:17] LABS: Percent Iron Saturation 44 % (20-50)
[2025-02-04 19:35] LABS: Vitamin B12 624.0 pg/mL (239-931)
[2025-02-04 19:40] LABS: Ferritin 23.00 ng/mL (6.24-137)
== END 2025-02-04 08:04 | disposition home or self-care (01) ==
LOC: ANHBWCLAB 08:04
PROVIDERS: PCP Nurse Practitioner Adult Health; Visit Provider Nurse Practitioner Adult Health
DX: R53.83 Other fatigue (principal)
CPT/HCPCS: 36415; 82306; 82607; 82728; 83540; 83550; 85027